=== PATIENT | female | born 1965 | race Caucasian/White ===

== ENCOUNTER 2023-01-12 00:08 | Emergency (ER) | payer OTHER, SELFPAY ==
[2023-01-12 00:13] VITALS: BP 167/88; PULSE 88; RESP 20; TEMP 36.7; O2SAT 98; BMI 36.7
--- NOTE | 2023-01-12 00:35 | ED.LOWEXI1 ---
HPI - Extremity Injury (Lower) General Chief Complaint: Extremity Injury, Lower Stated Complaint: LEG PAIN, RIGHT LEG Time Seen by Provider: 01/12/23 00:24 Mode of arrival: walk-in Limitations: no limitations History of Present Illness HPI Narrative: patient presents complaining of pain of her right thigh for past 3-4 nights. Denies injury. States pain is not as bad during the day. States when she lays down the pain in her thigh increases . Describes it as a burning pain of her thigh and numbness of the right foot. No associated back or abdominal pain. Was seen by the chiropractor and it did not help. she has increased pain when she extends her right leg. pain lessens when she flexes at her right hip Related Data Home Medications Medication Instructions Recorded Confirmed baclofen 20 mg tablet 20 mg PO Q8H 01/12/23 01/12/23 esomeprazole magnesium 40 mg 40 mg PO DAILY 01/12/23 01/12/23 capsule,delayed release (Nexium) meloxicam 15 mg tablet 15 mg PO DAILY 01/12/23 01/12/23 sucralfate 1 gram tablet 1 g PO Q6H PRN GERD 01/12/23 01/12/23 tizanidine 4 mg tablet 4 mg PO DAILY PRN muscle spasticity 01/12/23 01/12/23 Allergies Allergy/AdvReac Type Severity Reaction Status Date / Time No Known Drug Allergies Allergy Verified 01/12/23 00:18 Review of Systems ROS Status of ROS 10 or more systems reviewed and unremarkable except as noted in history and below [facility] Social History Smoking status: Current every day smoker Exam Constitutional Vital Signs - 24 hr 01/12/23 00:13 Temperature 98.1 F Pulse Rate [Monitor] 88 Respiratory Rate 20 Blood Pressure [Right Arm] 167/88 H Pulse Oximetry 98 Oxygen Delivery Method Room Air Common normals: no apparent distress, oriented x3, no limitations and healthy appearing HENMT Common normals: normocephalic and head/scalp atraumatic Neck & C-Spine Common normals: full ROM Respiratory Common normals: normal respiratory effort, no retractions, no use of accessory muscles and clear to auscultation bilaterally Cardio Common normals: no JVD, regular rate, regular rhythm, S1 normal heart sound and S2 normal heart sound GI Common normals: Normal to inspection, nondistended, normoactive bowel sounds present, soft to palpation and non-tender Extremity Common normals: normal to inspection, full ROM and no joint enlargement Other: right thigh nontender Neuro Common normals: oriented x3, CN's II-XII intact bilaterally, moves all extremities, no focal motor deficits, no sensory deficits noted and gait normal Psych Appearance: grossly normal Course Vital Signs Vital signs: Vital Signs Temperature 98.1 F 01/12/23 00:13 Pulse Rate 88 01/12/23 00:13 Respiratory Rate 20 01/12/23 00:13 Blood Pressure 167/88 H 01/12/23 00:13 Pulse Oximetry 98 01/12/23 00:13 Oxygen Delivery Method Room Air 01/12/23 00:13 Temperature 98.1 F 01/12/23 00:13 Pulse Rate 88 01/12/23 00:13 Respiratory Rate 20 01/12/23 00:13 Blood Pressure 167/88 H 01/12/23 00:13 Pulse Oximetry 98 01/12/23 00:13 Oxygen Delivery Method Room Air 01/12/23 00:13 MDM - Extremity Injury (Lower) MDM Narrative Medical decision making narrative: patient presents with atypical pain of her right thigh. Pain worse at night when trying to sleep resulting in her visit tonight. No injury exam unremarkable except increased discomfort of her right thigh when she extends her right leg. pain decreases with flexion at the hip. xray of the right femur and hip neg. Pain improved with treatment in the department and she was able to rest but still needed her hip flexed to do so. CTs ordered of the hip and pelvis and remain pending at this time. Care transferred to Dr Wagner pending CT report Discharge Plan Discharge Chief Complaint: Extremity Injury, Lower Clinical Impression: Acute pain of right thigh Prescriptions / Home Meds: No Action baclofen 20 mg tablet 20 mg PO Q8H meloxicam 15 mg tablet 15 mg PO DAILY sucralfate 1 gram tablet 1 g PO Q6H PRN (Reason: GERD) tizanidine 4 mg tablet 4 mg PO DAILY PRN (Reason: muscle spasticity) esomeprazole magnesium [Nexium] 40 mg capsule,delayed release(DR/EC) 40 mg PO DAILY Instructions: Leg Pain (ED) Additional Instructions: follow up with Dr Grayson early next week . Return if pain increases Stand Alone Forms: Portal Instructions Referrals: Negro Grayson MD [Primary Care Provider] - 1 week
--- NOTE | 2023-01-12 00:38 | XR_ITS ---
[facility] [id number] Patient Name: TEA MUIR MRN: [id number] date: 1965 Sex: F Assigned Patient Location: ER Current Patient Location: ED.MAIN Accession/Order Number: [id number] Exam Date: 01/12/2023 00:50 Report Date: 01/12/2023 01:23 At the request of: KENYATTA BAUM Procedure: XR hip RT min 2V EXAM: XR hip RT min 2V, XR femur RT 2V HISTORY: pain COMPARISON: None. TECHNIQUE: 2 views of the right hip and 2 views of the right femur were obtained. FINDINGS: No acute fracture or dislocation is seen. The right femoral head is well-seated in the acetabulum. There are mild degenerative changes of the right sacroiliac joint. The right hip joint and the pubic symphysis are preserved. IMPRESSION: 1. No acute abnormality of the right hip or right femur is seen. Electronically authenticated by: Valentina CABAN Date: 01/12/2023 01:23
--- NOTE | 2023-01-12 00:38 | XR_ITS ---
[facility] [id number] Patient Name: TEA MUIR MRN: [id number] date: 1965 Sex: F Assigned Patient Location: ER Current Patient Location: ED.MAIN Accession/Order Number: [id number] Exam Date: 01/12/2023 00:50 Report Date: 01/12/2023 01:23 At the request of: KENYATTA BAUM Procedure: XR femur RT 2V EXAM: XR hip RT min 2V, XR femur RT 2V HISTORY: pain COMPARISON: None. TECHNIQUE: 2 views of the right hip and 2 views of the right femur were obtained. FINDINGS: No acute fracture or dislocation is seen. The right femoral head is well-seated in the acetabulum. There are mild degenerative changes of the right sacroiliac joint. The right hip joint and the pubic symphysis are preserved. IMPRESSION: 1. No acute abnormality of the right hip or right femur is seen. Electronically authenticated by: Valentina CABAN Date: 01/12/2023 01:23
[2023-01-12 01:32] LABS: Basophils Absolute Auto 0.1 10^3/uL (0.0-0.1); Basophils Percent Auto 0.7 % (0.2-2.0); Eosinophils Absolute Auto 0.3 10^3/uL (0.0-0.7); Eosinophils Percent Auto 3.6 % (0.9-7.0); Hemoglobin 14.9 g/dL (12.0-16.0); Immature Granulocytes Abs Auto 0.02 10^3/uL (0.00-0.03); Immature Granulocytes Pct Auto 0.2 % (0.0-0.5); Lymphocytes Percent Auto 24.2 % (20.5-60.0); Mean Corpuscular HGB Conc 34.7 g/dL (29.9-35.2); Mean Corpuscular Hemoglobin 31.7 pg (26.7-34.0); Mean Corpuscular Volume 91.5 fL (81.0-99.0); Mean Platelet Volume 9.7 fL (9.5-13.5); Monocytes Absolute Auto 0.6 10^3/uL (0.3-0.8); Monocytes Percent Auto 7.5 % (1.7-12.0); Neutrophils Absolute Auto 5.3 10^3/uL (1.4-6.5); Neutrophils Percent Auto 63.8 % (43.0-75.0); Platelet Count 289 10^3/uL (150-450); Red Cell Distribution Width 11.6 % (11.0-15.0); White Blood Count 8.3 10^3/uL (4.0-11.0)
[2023-01-12 01:40] LABS: Erythrocyte Sedimentation Rate 16 mm/hr (<=30)
[2023-01-12 01:53] LABS: Anion Gap 12.8; BUN Creatinine Ratio 29.3; Calcium 8.6 mg/dL (8.5-10.1); Carbon Dioxide 24.9 mmol/L (21.0-32.0); Chloride 106 mmol/L (98-107); Estimated GFR (African America >60 (>=60); Estimated GFR (Non-African Ame 58 (>=60); Glucose 116 mg/dL (74-106); Potassium 3.7 mmol/L (3.5-5.1); Sodium 140 mmol/L (136-145)
[2023-01-12 01:56] LABS: C Reactive Protein <0.2 mg/dL (<=1.0)
[2023-01-12] MEDS: FENTANYL CITRATE/PF 100 MCG/2 ML VIAL 50 MCG IV (02:32)
[2023-01-12 02:40] VITALS: BP 124/68; PULSE 71; RESP 18; O2SAT 97
[2023-01-12] MEDS: HYDROMORPHONE HCL 1 MG/ML CARTRIDGE IVP (03:21)
[2023-01-12 03:30] VITALS: BP 129/74; PULSE 74; RESP 16; O2SAT 98
--- NOTE | 2023-01-12 04:04 | CT_ITS ---
[address] [address] Patient Name: TEA MUIR MRN: [id number] date: 1965 Sex: F Assigned Patient Location: ER Current Patient Location: Accession/Order Number: [id number] Exam Date: 01/12/2023 04:10 Report Date: 01/12/2023 08:35 At the request of: KENYATTA BAUM Procedure: CT femur RT wo con EXAMINATION: CT femur RT wo con, CT pelvis wo con HISTORY: pain COMPARISON: No relevant comparison available. TECHNIQUE: Multi-planar CT images were created without IV contrast. Dose reduction techniques were achieved by using automated exposure control and/or adjustment of mA and/or kV according to patient size and/or use of iterative reconstruction technique. FINDINGS: BONES: Normal alignment of the lumbar spine with no acute fracture. 2 mm anterolisthesis of L5 on S1. Mild to moderate degenerative changes with intervertebral narrowing, endplate sclerosis and vacuum disks at L4-L5 and L5-S1. No acute fracture, dislocation, lytic or sclerotic lesion of the pelvis or right femur. SOFT TISSUES: Negative. No visible soft tissue swelling. EFFUSION: None visible. OTHER: Findings discussed with Dr. jones at 7:02 AM. Delay in final interpretation related to technical factors IMPRESSION: No acute abnormality of the pelvis or right femur Electronically authenticated by: JACKSON FRANCO Date: 01/12/2023 08:35
--- NOTE | 2023-01-12 04:04 | CT_ITS ---
[address] [address] Patient Name: TEA MUIR MRN: [id number] date: 1965 Sex: F Assigned Patient Location: ER Current Patient Location: Accession/Order Number: [id number] Exam Date: 01/12/2023 04:10 Report Date: 01/12/2023 08:35 At the request of: KENYATTA BAUM Procedure: CT pelvis wo con EXAMINATION: CT femur RT wo con, CT pelvis wo con HISTORY: pain COMPARISON: No relevant comparison available. TECHNIQUE: Multi-planar CT images were created without IV contrast. Dose reduction techniques were achieved by using automated exposure control and/or adjustment of mA and/or kV according to patient size and/or use of iterative reconstruction technique. FINDINGS: BONES: Normal alignment of the lumbar spine with no acute fracture. 2 mm anterolisthesis of L5 on S1. Mild to moderate degenerative changes with intervertebral narrowing, endplate sclerosis and vacuum disks at L4-L5 and L5-S1. No acute fracture, dislocation, lytic or sclerotic lesion of the pelvis or right femur. SOFT TISSUES: Negative. No visible soft tissue swelling. EFFUSION: None visible. OTHER: Findings discussed with Dr. jones at 7:02 AM. Delay in final interpretation related to technical factors IMPRESSION: No acute abnormality of the pelvis or right femur Electronically authenticated by: JACKSON FRANCO Date: 01/12/2023 08:35
[2023-01-12] MEDS: METHYLPREDNISOLONE SOD SUCC PF 125 MG/2 ML VIAL IVP (04:07)
== END 2023-01-12 07:18 | disposition home or self-care (01) ==
PROVIDERS: Emergency Provider Internal Medicine; PCP Family Medicine
DX: M79.651 Pain in right thigh (principal); Z79.899 Other long term (current) drug therapy; F17.210 Nicotine dependence, cigarettes, uncomplicated
CPT/HCPCS: 36415; 72192; 73502; 73552; 73700; 80048; 85025; 85652; 86140; 96374; 96375; 99284; J1170; J2930